=== PATIENT | female | born 1955 | race Caucasian/White ===

== ENCOUNTER 2016-07-20 08:59 | Outpatient (CLI) | payer BC | END 2016-07-20 17:58 | disposition home or self-care (01) | LOC: SMA 08:59 | DX: R92.8 Other abnormal and inconclusive findings on diagnostic imaging of breast (principal) | CPT/HCPCS: 76641; 77051; G0204; G0206 ==

== ENCOUNTER 2019-07-31 08:05 | Outpatient (CLI) | payer BC | END 2019-07-31 20:18 | disposition home or self-care (01) | LOC: SMA 08:05 | DX: N60.02 Solitary cyst of left breast (principal); N60.01 Solitary cyst of right breast; N60.19 Diffuse cystic mastopathy of unspecified breast | CPT/HCPCS: 76641; 77066 ==